=== PATIENT | female | born 1965 | race Caucasian/White ===

== ENCOUNTER 2022-03-30 13:00 | Outpatient (CLI) | payer BC, SELFPAY ==
[2022-03-30 21:33] LABS: Albumin* 4.8 g/dL (3.3-5.0); Chloride* 101 mmol/L (96-114)
[2022-03-30 21:34] LABS: Potassium* 4.4 mmol/L (3.6-5.1); Sodium* 138 mmol/L (135-149)
[2022-03-30 21:36] LABS: Alkaline Phosphatase* 75 U/L (40-150); Aspartate Amino Transferase* 30 U/L (12-35); Bilirubin Total* 1.1 mg/dL (0.1-1.5); Blood Urea Nitrogen* 19 mg/dL (7-30); Carbon Dioxide* 25 mmol/L (20-32); Cholesterol* 246 mg/dL (90-199); Creatinine* 0.7 mg/dL (0.5-1.5); Estimated Glomerular Filt Rate 102 ml/min; Glucose* 59 mg/dL (60-115); Total Protein* 8.2 g/dL (6.0-8.3); Triglycerides* 70 mg/dL (40-149)
[2022-03-30 21:37] LABS: Alanine Aminotransferase* 23 U/L (4-35); Calcium* 9.5 mg/dL (8.4-10.6); HDL Cholesterol* 62 mg/dL (>=50); LDL Cholesterol Calculated 170 mg/dL (<100)
[2022-03-30 21:52] LABS: Vitamin D 25 Hydroxy* 49 ng/mL (30-80)
[2022-03-30 22:23] LABS: Hepatitis C Virus Antibody* Negative (Negative)
== END 2022-03-30 13:01 | disposition home or self-care (01) ==
PROVIDERS: Visit Provider Family Medicine
DX: Z00.00 Encounter for general adult medical examination without abnormal findings (principal); E55.9 Vitamin D deficiency, unspecified; Z11.59 Encounter for screening for other viral diseases; Z13.6 Encounter for screening for cardiovascular disorders
CPT/HCPCS: 80053; 80061; 82306; 86803

== ENCOUNTER 2023-03-21 11:13 | Outpatient (CLI) | payer BC, SELFPAY | END 2023-03-21 11:14 | disposition home or self-care (01) | PROVIDERS: PCP Family Medicine; Visit Provider Family Medicine | DX: Z00.00 Encounter for general adult medical examination without abnormal findings (principal); E55.9 Vitamin D deficiency, unspecified; Z13.6 Encounter for screening for cardiovascular disorders; Z13.1 Encounter for screening for diabetes mellitus | CPT/HCPCS: 80053; 80061 ==

== ENCOUNTER 2023-04-12 12:47 | Outpatient (CLI) | payer BC, SELFPAY | END 2023-04-12 12:48 | disposition home or self-care (01) | LOC: RAD 12:48 | PROVIDERS: PCP Family Medicine; Visit Provider Family Medicine | DX: R01.1 Cardiac murmur, unspecified (principal); I34.0 Nonrheumatic mitral (valve) insufficiency | CPT/HCPCS: 93306 ==